=== PATIENT | female | born 1970 | race Caucasian/White ===

== ENCOUNTER → 2022-03-16 09:57 | Outpatient (CLI) | payer OTHER, SELFPAY ==
--- NOTE | 2022-03-22 11:04 | PM.PFT.1 ---
Pulmonary Function Test Referral & Results Date Patient Seen: 03/16/22 Requesting provider: Lacey Mcmahon Results: The spirometry demonstrates an FVC of 4.55 L which is 101% of predicted. The FEV1 was measured at 3.07 L which is 87% of predicted. The FEV1/FVC ratio was 68 which is 85% of predicted. Following the administration of bronchodilator there was an 11% improvement in FEV1 and a 53% improvement in FEF 25-75%. Interpretation: This study demonstrates possibly very mild obstructive lung disease based on very minimal reduction in FEV1/FVC ratio and the minimal improvement seen after bronchodilator administration as above, particularly in small airway flow Clinical correlation suggested
== END ==
PROVIDERS: Referring Provider Family Medicine; Visit Provider Family Medicine
DX: J45.50 Severe persistent asthma, uncomplicated (principal)
CPT/HCPCS: 94060

== ENCOUNTER → 2022-03-26 07:41 | Outpatient (CLI) | payer OTHER, SELFPAY ==
--- NOTE | 2022-03-26 07:43 | DI.MRI.S_ITS ---
PROCEDURE: MR SHOULDER LT WO CON INDICATIONS: Unspecified subluxation of unspecified shoulder senia TECHNIQUE: Noncontrast oblique coronal T2 fast spin echo with fat saturation, oblique sagittal T1 spin echo and T2 fast spin echo with fat saturation, axial T1 spin echo and T2 fast spin echo with fat saturation through the shoulder. COMPARISON: None. FINDINGS: Image quality: Excellent. Rotator cuff: Distal supraspinatus and infraspinatus tendinosis at their insertion on the humeral head is seen. Distal subscapularis tendon is intact. No full-thickness rotator cuff tendon rupture. Sagittal images demonstrate no significant muscle atrophy. Bones and bursae: Moderate acromioclavicular joint osteoarthritic changes are seen with joint space narrowing, subchondral sclerosis and edema. There is downward osteophyte formation depressing the musculotendinous junction of supraspinatus. No fracture or dislocation. Trace amount of subacromial subdeltoid bursal fluid is seen. Capsule and soft tissues: Signal abnormality and fraying of superior anterior labrum at 12 to 1 o'clock position is seen suggestive of subtle superior anterior labral tear. The long head of the biceps tendon appears mildly thickened. The rotator interval appears normal, without fibrosis. The coracohumeral ligament is normal in thickness. IMPRESSION: 1. Distal supraspinatus and infraspinatus tendinosis. No rotator cuff tendon rupture. No significant muscle atrophy. 2. Moderate acromioclavicular joint osteoarthritis. No fracture or dislocation. Trace amount of subacromial subdeltoid bursal fluid. 3. Suggestion of subtle superior anterior labral tear at 12 to 1 o'clock position. 4. Proximal intra-articular portion of long head of biceps tendinosis. Dictated by: Remigio Barrera M.D. on 03/27/2022 at 9:20 Approved by: Remigio Barrera M.D. on 03/27/2022 at 9:24
== END ==
PROVIDERS: Referring Provider Family Medicine; Visit Provider Family Medicine
DX: M19.012 Primary osteoarthritis, left shoulder (principal); S43.003A Unspecified subluxation of unspecified shoulder joint, initial encounter
CPT/HCPCS: 73221

== ENCOUNTER → 2022-04-21 15:18 | Outpatient (CLI) | payer OTHER, SELFPAY ==
--- NOTE | 2022-04-21 | DI.MRI.S_ITS ---
PROCEDURE: MR KNEE RT WO CON INDICATIONS: Pain in right knee TECHNIQUE: Noncontrast sagittal PD fast spin echo and T2 fast spin echo with fat saturation, sagittal 3-D FLASH with fat saturation; coronal T1 spin echo and PD fast spin echo with fat saturation, and axial PD fast spin echo with fat saturation through the knee. COMPARISON: None. FINDINGS: Image quality: Excellent. Menisci: There is a large horizontal tear involving the posterior horn of the medial meniscus. There is a 1.2 x 0.6 x 1.7 cm meniscal cyst adjacent to the posterior horn of the medial meniscus. The lateral meniscus demonstrates normal morphology and internal signal. The meniscal root ligaments appear intact. Cruciate ligaments: The anterior and posterior cruciate ligaments appear intact. Medial structures: The medial collateral ligament appears intact. The semimembranosus tendon insertions and meniscocapsular junction appear intact. Visualized portions of the pes anserinus tendons appear normal. No abnormal bursal fluid. Lateral structures: The lateral collateral ligament, long and short heads of the biceps femoris tendon appear intact. The popliteus tendon appears normal. Iliotibial band appears normal. Anterior structures: The quadriceps and patellar tendons appear intact. Patellar alignment is normal. No femoral trochlear dysplasia or ventral trochlear prominence. Mild edema in the superior lateral aspect of the infrapatellar fat pad, suggesting mild Haffa pad impingement. Bones and cartilage: No bone marrow contusions or fractures. The cartilage of the medial and lateral femorotibial compartments, as well as the patellofemoral compartment, appears normal in thickness. Joint space: There is small knee joint effusion. There is a tiny Valencia's cyst. Normal appearing synovial plicae are incidentally noted. IMPRESSION: 1. Large horizontal tear of the posterior horn of the medial meniscus with a meniscal cyst. 2. Small knee joint effusion. 3. Mild edema in the superior lateral aspect of the infrapatellar fat pad, suggesting mild Haffa pad impingement. Dictated by: Allan Emerson M.D. on 04/21/2022 at 16:41 Approved by: Allan Emersno M.D. on 04/21/2022 at 16:48
== END ==
PROVIDERS: PCP Family Medicine; Referring Provider Family Medicine; Visit Provider Family Medicine
DX: S83.241A Other tear of medial meniscus, current injury, right knee, initial encounter (principal); M25.461 Effusion, right knee; M25.561 Pain in right knee
CPT/HCPCS: 73721

== ENCOUNTER → 2023-01-31 07:48 | Outpatient (CLI) | payer OTHER, SELFPAY ==
--- NOTE | 2023-01-31 | DI.MRI.S_ITS ---
PROCEDURE: MR LUMBAR SPINE WO CON INDICATIONS: RADICULOPATHY CERVICAL AND LUMBAR REGIONS TECHNIQUE: Noncontrast sagittal T1 spin echo and T2 fast echo, sagittal STIR, and T2 fast spin echo through the lumbar spine. In cases with scoliosis, additional coronal T2 fast spin echo may be performed. COMPARISON: None. FINDINGS: Image quality: Excellent. Alignment and Curvature: There is normal bony alignment. Bone Marrow: Marrow is of normal overall signal. No acute vertebral body compression fractures. Spinal Cord: Conus medullaris terminates at the L1 level. Visualized cord demonstrates normal signal and size. Paraspinous Soft Tissues: No paravertebral masses. T12-L1: No significant disc bulge. The foramina and central canal are patent. L1-L2: No significant disc bulge. The foramina and central canal are patent. L2-L3: No significant disc bulge. The foramina and central canal are patent. L3-L4: The disc is desiccated. Diffuse disc bulge causes mild bilateral foraminal stenosis. No central canal stenosis. L4-L5: Diffuse disc bulge causes mild bilateral foraminal stenosis. No central canal stenosis. L5-S1: Disc space narrowing with diffuse disc bulge with disc osteophytes, endplate degenerative changes and facet hypertrophy cause moderate bilateral foraminal stenosis. No central canal stenosis. IMPRESSION: 1. Multilevel lumbar spondylosis causing foraminal and central canal stenosis as detailed above. 2. No central canal stenosis. 3. No acute abnormality. Dictated by: Gordy Higuera M.D. on 01/31/2023 at 9:38 Approved by: Gordy Higuera M.D. on 01/31/2023 at 9:43
--- NOTE | 2023-01-31 | DI.MRI.S_ITS ---
PROCEDURE: MR CERVICAL SPINE WO CON INDICATIONS: RADICULOPATHY CERVICAL AND LUMBAR REGIONS TECHNIQUE: Noncontrast sagittal T1 spin echo and T2 fast spin echo, sagittal STIR, foraminal oblique sagittal T2 fast spin echo, and axial gradient echo or T2 fast spin echo through the cervical spine. COMPARISON: None. FINDINGS: Image quality: Excellent. Alignment and Curvature: There is normal bony alignment. Bone Marrow: Marrow demonstrates normal overall signal. C5, C6, and C7 ACDF. Spinal Cord: Visualized spinal cord has normal size and signal. No cerebellar tonsillar herniation. Paraspinous Soft Tissues: No paravertebral masses. Prevertebral soft tissues are normal in thickness. C2-C3: No significant disc bulge. The foramina and central canal are patent. C3-C4: No significant disc bulge. The foramina and central canal are patent. C4-C5: Asymmetric diffuse disc bulge and uncovertebral hypertrophy cause mild bilateral foraminal stenosis. The central canal it is patent. C5-C6: Postoperative changes of ACDF at this level. The foramina and central canal are patent. C6-C7: Postoperative changes of ACDF at this level. The foramina and central canal are patent. C7-T1: No significant disc bulge. The foramina and central canal are patent. IMPRESSION: 1. Postoperative changes of C5-C7 ACDF without complication. 2. Cervical spondylosis at C4-5 causing mild bilateral foraminal stenosis. Dictated by: Gordy Higuera M.D. on 01/31/2023 at 9:28 Approved by: Gordy Higuera M.D. on 01/31/2023 at 9:37
== END ==
PROVIDERS: PCP Family Medicine; Referring Provider Family Medicine; Visit Provider Family Medicine
DX: M47.22 Other spondylosis with radiculopathy, cervical region (principal); M47.26 Other spondylosis with radiculopathy, lumbar region; M47.27 Other spondylosis with radiculopathy, lumbosacral region; M48.02 Spinal stenosis, cervical region; M48.061 Spinal stenosis, lumbar region without neurogenic claudication; M48.07 Spinal stenosis, lumbosacral region; Z98.890 Other specified postprocedural states; Z98.1 Arthrodesis status
CPT/HCPCS: 72141; 72148

== ENCOUNTER → 2024-06-28 09:44 | Outpatient (CLI) | payer OTHER, SELFPAY ==
--- NOTE | 2024-06-28 | DI.CT.S_ITS ---
PROCEDURE: CT SINUS SCREEN WO CON INDICATIONS: CHRONIC PANSINUSITIS/POLYPOSIS/OBSTRUCTION/PND TECHNIQUE: Noncontrast 3.0 mm axial images acquired from the frontal sinuses to the mid-sella, with coronal and sagittal reformats. For radiation dose reduction, the following was used: automated exposure control, adjustment of mA and/or kV according to patient size. COMPARISON: None. FINDINGS: Image quality: Excellent. Maxillary Sinuses: Postsurgical changes with removal of the middle turbinates and the medial maxillary sinus solis. There is slight residual mucosal thickening. Ethmoid Air Cells: Mild mucosal thickening most prominent within the lower left ethmoid air cells. Drainage pathways are patent. Sphenoid Sinuses: No bony remodeling or destruction. Sinuses are clear. Frontal Sinuses: Slight mucosal thickening of the frontal sinuses with patent drainage pathways. Ostiomeatal Complexes: Ostiomeatal complexes are patent. No Sunny cells. Miscellaneous: Visualized intra-orbital contents are normal. No charlie bullosa or paradoxical turbinate curvature. No nasal septal deviation. IMPRESSION: 1. Mild mucosal thickening most prominent in the frontal and ethmoid air cells. 2. Drainage pathways are widely patent. 3. Postsurgical changes of the middle turbinates and medial maxillary sinus wall. Dictated by: Hernan Hoff M.D. on 06/28/2024 at 11:24 Approved by: Hernan Hoff M.D. on 06/28/2024 at 11:30
== END ==
PROVIDERS: PCP Family Medicine; Referring Provider Otolaryngology; Visit Provider Otolaryngology
DX: J32.4 Chronic pansinusitis (principal); J33.9 Nasal polyp, unspecified; J34.89 Other specified disorders of nose and nasal sinuses; R09.82 Postnasal drip
CPT/HCPCS: 70486

== ENCOUNTER → 2024-10-29 08:01 | Outpatient (CLI) | payer OTHER, SELFPAY ==
--- NOTE | 2024-10-29 08:06 | DI.RAD.S_ITS ---
PROCEDURE: XR FOOT RT MIN 3V INDICATIONS: PAIN TECHNIQUE: 3 views of the foot were acquired. COMPARISON: None. 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 There is mild diffuse plantar soft tissue swelling IMPRESSION: Diffuse plantar soft tissue swelling and other minor chronic findings Dictated by: Vel Glover M.D. on 10/30/2024 at 12:07 Approved by: Vel Glover M.D. on 10/30/2024 at 12:08
--- NOTE | 2024-10-29 08:07 | DI.RAD.S_ITS ---
PROCEDURE: XR HIP W PEL IF DONE BILAT 2V INDICATIONS: PAIN TECHNIQUE: Three views of both hips were acquired. COMPARISON: None. FINDINGS: Bones: There are no osseous abnormalities. SI and hip joints: Normal in width and alignment without arthritic change. Moderate L5-S1 degenerative disc and facet disease Soft tissues: No soft tissue swelling, calcification or mass. IMPRESSION: Moderate L5-S1 degenerative disc and facet disease. Pelvic proper is normal Dictated by: Vel Glover M.D. on 10/30/2024 at 12:08 Approved by: Vel Glover M.D. on 10/30/2024 at 12:09
--- NOTE | 2024-10-29 08:08 | EKG_ITS ---
[facility] [address] [place] [address] Test Date: 2024-10-29 Pat Name: Shahla Argueta Department: Room: Gender: Female Manager Of Selection And Assessment: : 1970 Requested By: Order Number: [id number] Reading MD: Juan David Garza Measurements Intervals Graham Rate: 92 P: 73 UT: 132 QRS: 71 QRSD: 80 T: 35 QT: 384 QTc: 474 Interpretive Statements Normal sinus rhythm Electronically Signed On 10-31-2024 0:11:29 PDT by Juan David Garza
--- NOTE | 2024-10-29 08:25 | DI.ECHO.S_ITS ---
[facility] : : [address] : : [place] : : [id number] : : Phone: [phone] Echocardiogram Report + :Name: LOUIE MCADAMS Study Date: 10/29/2024 Height: 72 in : :[facility] ReadingLocation: Weight: 155 lb : : Gender: Female BSA: 1.9 m2 : :: 1970 Age: 54 yrs BP: 143/88 mmHg: :Reason For Study: HEART PALPITATIONS : :Ordering Physician: WALESKA, : :CINDY Woodward D.O. Performed By: Trisha Mccallum : :Referring: CINDY GALEANO D.O. : + Interpretation Summary The left ventricle is normal in size and wall thickness. The ejection fraction is estimated to be 55-60%. Diastolic parameters suggest probable normal left ventricular diastolic function and normal filling pressures. The right ventricle is normal in size and function. Pulmonary artery pressures cannot be estimated because of the lack of a measurable TR jet velocity but the IVC suggests a CVP of around 3 mmHg. The left atrial size is normal. There is no significant valvular heart disease. The aortic root is normal size. Procedure: A two-dimensional transthoracic echocardiogram with color flow and Doppler was performed. The study quality was technically adequate. There is no prior echocardiogram noted for this patient. The patient was in sinus rhythm with heart rates between 74-89 bpm during the exam. Left Ventricle: The left ventricle is normal in size and wall thickness. The ejection fraction is estimated to be 55-60%. Diastolic parameters suggest probable normal left ventricular diastolic function and normal filling pressures. Right Ventricle: The right ventricle is normal in size and function. Atria: The left atrial size is normal. Right atrial size is normal. There is no Doppler evidence for an interatrial shunt. Mitral Valve: The mitral valve leaflets appear to open well. There is no mitral regurgitation noted. Aortic Valve: The aortic valve is trileaflet. The aortic valve opens well. There is no aortic valve stenosis. No aortic regurgitation is present. Tricuspid Valve: The tricuspid valve leaflets are thin and pliable. There is a trace or physiologic amount of tricuspid regurgitation. Pulmonary artery pressures cannot be estimated because of the lack of a measurable TR jet velocity but the IVC suggests a CVP of around 3 mmHg. Pulmonic Valve: The pulmonic valve leaflets are thin and pliable; valve motion is normal. There is no pulmonic valvular regurgitation. There is no significant valvular heart disease. Great Vessels: The aortic root is normal size. The dimensions of the ascending aorta are normal. The IVC is of normal diameter and collapses greater than 50% with a sniff. This suggests a low right atrial pressure of 3 mm Hg. Pericardium/ Pleura There is no pericardial effusion. There is no pleural effusion. MMode/2D Measurements & Calculations LVIDd: 4.4 cm LVOT diam: 2.0 cm LVIDs: 3.2 cm Ao root diam: 2.9 cm FS: 27.8 % asc Aorta Diam: 2.9 cm EPSS: 0.30 cm Ao Arch Diam (Prox Trans): 2.5 cm IVSd: 0.57 cm LVPWd: 0.58 cm LV bowles. diameter/BSA (cm/m^2): 2.3 LV sys. diameter/BSA (cm/m^2): 1.7 LA A2 area: 17.2 cm2 RA long axis: 4.0 cm LA A4 area: 10.8 cm2 RA area: 11.2 cm2 LA length (vol): 4.1 cm RA vol: 26.6 ml LA vol: 38.2 ml RA : 13.9 ml/m2 LA vol index: 20.0 ml/m2 IVC diam: 1.5 cm RVD2 (mid): 2.6 cm TAPSE: 2.5 cm Doppler Measurements & Calculations Ao V2 max: 115.4 cm/sec LVOT Max Brian: 91.3 cm/sec Ao V2 mean: 78.7 cm/sec LV V1 max P.3 mmHg Ao max P.3 mmHg LV V1 VTI: 17.9 cm Ao mean P.8 mmHg TODD(I,D): 2.6 cm2 Ao V2 VTI: 21.1 cm TODD(V,D): 2.4 cm2 sev ratio: 0.85 TODD indexed to BSA (cm^2/m^2): 1.4 MV E max brian: 69.0 cm/sec PA V2 max: 82.2 cm/sec MV A max brian: 58.8 cm/sec PA V2 mean: 57.3 cm/sec MV E/A: 1.2 PA mean P.4 mmHg Med Peak E' Brian: 15.4 cm/sec PA pr(Accel): 30.6 mmHg E/E' med: 4.5 Lat Peak E' Brian: 19.3 cm/sec E/E' lat: 3.6 E/e' average: 4.0 MV dec time: 0.17 sec SV(LVOT): 55.3 ml Reading Physician:05:23 PM
[2024-10-29 10:12] LABS: Vitamin D 25 Hydroxy (D3) 30.1 ng/mL (30.0-100.0)
== END ==
LOC: ECHO 08:04
PROVIDERS: PCP Family Medicine; Referring Provider Chiropractor; Visit Provider Chiropractor
DX: M19.071 Primary osteoarthritis, right ankle and foot (principal); M51.379 Other intervertebral disc degeneration, lumbosacral region without mention of lumbar back pain or lower extremity pain; M47.817 Spondylosis without myelopathy or radiculopathy, lumbosacral region; M79.89 Other specified soft tissue disorders; Q74.8 Other specified congenital malformations of limb(s); M77.31 Calcaneal spur, right foot; R00.2 Palpitations; E55.9 Vitamin D deficiency, unspecified; J01.90 Acute sinusitis, unspecified
CPT/HCPCS: 36415; 73521; 73630; 82306; 93005; 93306

== ENCOUNTER → 2024-12-05 12:35 | Outpatient (CLI) | payer OTHER, SELFPAY ==
--- NOTE | 2024-12-05 | DI.RAD.S_ITS ---
PROCEDURE: XR CERVICAL SPINE 2V OR 3V INDICATIONS: Back pain TECHNIQUE: 4 view(s) of the cervical spine were acquired. COMPARISON: None. FINDINGS: Bones: No fractures or dislocations to the T1 level. Hardware status post C5 through C7 anterior discectomy and fusion without evidence of complication. The lateral masses of C1 appear intact on the odontoid view. No suspicious bony lesions. Soft tissues: No prevertebral soft tissue swelling. IMPRESSION: No evidence of acute osseous abnormality or hardware complication status post C5 through C7 ACDF. Dictated by: Grupo Chavez M.D. on 12/05/2024 at 21:46 Approved by: Grupo Chavez M.D. on 12/05/2024 at 21:47
== END ==
LOC: RAD 12:38
PROVIDERS: PCP Family Medicine; Referring Provider Chiropractor; Visit Provider Chiropractor
DX: M54.9 Dorsalgia, unspecified (principal); Z98.1 Arthrodesis status
CPT/HCPCS: 72040

== ENCOUNTER → 2025-01-26 13:11 | Outpatient (CLI) | payer OTHER, SELFPAY ==
--- NOTE | 2025-01-26 | DI.RAD.S_ITS ---
PROCEDURE: XR THORACIC SPINE 2V INDICATIONS: M13.80, R00.2, J45.909 TECHNIQUE: Two views of the thoracic spine were acquired. COMPARISON: None. FINDINGS: Thoracic spine curvature and alignment: Normal. Bones: There are no osseous abnormalities. Disc spaces: Mild degenerative disc disease seen throughout the thoracic spine Intervertebral foramen: Grossly normal in width. Soft tissues: No soft tissue swelling, calcification or mass. IMPRESSION: Mild degeneration Dictated by: Vel Glover M.D. on 01/27/2025 at 11:57 Approved by: Vel Glover M.D. on 01/27/2025 at 11:58
--- NOTE | 2025-01-26 | DI.RAD.S_ITS ---
PROCEDURE: XR CHEST 2V INDICATIONS: M13.80, R00.2, J45.909 TECHNIQUE: 2 views of the chest were acquired. COMPARISON: None. FINDINGS: Heart, mediastinum and pulmonary vascular: Heart is normal in size and configuration. Mediastinum is unremarkable. Pulmonary vascular is normal. Lungs: Clear Pleural spaces: Normal-no effusions or pneumothorax. Bones and soft tissues: Normal IMPRESSION: Normal chest. Dictated by: Vel Glover M.D. on 01/27/2025 at 11:56 Approved by: Vel Glover M.D. on 01/27/2025 at 11:57
== END ==
LOC: RESP 13:12
PROVIDERS: PCP Family Medicine; Referring Provider Chiropractor; Visit Provider Chiropractor
DX: R00.2 Palpitations (principal); J98.8 Other specified respiratory disorders; R94.2 Abnormal results of pulmonary function studies; M13.80 Other specified arthritis, unspecified site; J45.909 Unspecified asthma, uncomplicated; M51.34 Other intervertebral disc degeneration, thoracic region
CPT/HCPCS: 71046; 72070; 94060

== ENCOUNTER → 2025-04-07 15:36 | Outpatient (CLI) | payer OTHER, SELFPAY ==
--- NOTE | 2025-04-07 | DI.MRI.S_ITS ---
PROCEDURE: MR LUMBAR SPINE WO CON INDICATIONS: L5 S1 RADICULOPATHY TECHNIQUE: Noncontrast sagittal T1 spin echo and T2 fast echo, sagittal STIR, and T2 fast spin echo through the lumbar spine. In cases with scoliosis, additional coronal T2 fast spin echo may be performed. COMPARISON: [facility], MR, MR LUMBAR SPINE WO CON, 01/31/2023, 8:00. FINDINGS: Image quality: Excellent. Alignment and Curvature: There is normal bony alignment. Bone Marrow: Marrow is of normal overall signal. No acute vertebral body compression fractures. Spinal Cord: Conus medullaris terminates at the a L1 level. Visualized cord demonstrates normal signal and size. Paraspinous Soft Tissues: No paravertebral masses. T12-L1: Normal appearance. L1-L2: Normal appearance. L2-L3: Mild disc bulge. Mild foraminal narrowing. No central canal narrowing. L3-L4: Mild disc bulge and facet hypertrophy with mild bilateral foraminal narrowing. No central canal narrowing. L4-L5: Posterior disc bulge and facet hypertrophy with mild bilateral foraminal stenosis and no central canal stenosis. L5-S1: Severe disc height loss and posterior bulge. Mild facet arthropathy. Moderate bilateral foraminal stenosis, more pronounced on the left. IMPRESSION: Multilevel degenerative changes, stable from prior with moderate bilateral foraminal stenosis at L5-S1 secondary to degenerative disc disease. Dictated by: George Kearney M.D. on 04/07/2025 at 16:27 Approved by: George Kearney M.D. on 04/07/2025 at 16:36
== END ==
PROVIDERS: PCP Family Medicine; Referring Provider Family Medicine; Visit Provider Family Medicine
DX: M47.16 Other spondylosis with myelopathy, lumbar region (principal); M47.26 Other spondylosis with radiculopathy, lumbar region; M47.27 Other spondylosis with radiculopathy, lumbosacral region; M51.06 Intervertebral disc disorders with myelopathy, lumbar region; M51.16 Intervertebral disc disorders with radiculopathy, lumbar region; M51.17 Intervertebral disc disorders with radiculopathy, lumbosacral region; M48.061 Spinal stenosis, lumbar region without neurogenic claudication; M48.07 Spinal stenosis, lumbosacral region
CPT/HCPCS: 72148